=== PATIENT | male | born 1940 | race Caucasian/White ===

== ENCOUNTER → 2016-04-23 | Outpatient (CLI) | payer OTHER ==
--- NOTE | 2016-04-26 12:28 | DI ---
History: Left shoulder pain. Procedure: Three-view study. Prior examination: None. Findings: Narrow gap between the acromion and the humeral head with moderate degenerative changes at the acromioclavicular junction and mild degenerative changes of the humeral head itself. Glenohumeral junction appears fairly well preserved Prior 3 level cervical spine surgery C5-6 and 7. No evidence of dislocation. Impression: Overall, bone mineral density is rather low. Narrow gap between the acromion and the humeral head, suggesting impingement condition. Mild degenerative changes observed at the glenohumeral junction and the acromioclavicular junction. Prior neck surgery
== END ==
LOC: RAD 16:24
DX: M25.512 Pain in left shoulder (principal); M54.2 Cervicalgia; M19.012 Primary osteoarthritis, left shoulder; Z98.1 Arthrodesis status
CPT/HCPCS: 73030; 99213

== ENCOUNTER → 2016-05-04 | Outpatient (CLI) | payer OTHER ==
--- NOTE | 2016-05-04 16:46 | DI ---
CERVICAL SPINE SERIES, 05/04/2016 9:44 AM: Clinical History: Neck pain. Previous Exam: None at this facility. Upright AP and lateral and upright lateral flexion and extension views are submitted. The patient is status post anterior fusions between C5-6 and C6-7, and the fusions are solid. There is mild to moder ate disc space narrowing from C2-3 through C4-5. There is anterior subluxation of C3 on C4 by 1-2 mm with flexion and this is reduced with extension. No instability is noted at C2-3 or C4-5. C1 articula gomez normally with C2 and the occiput. Prevertebral soft tissue planes are normal. Both lung apices ar e normal. Readin. Status post anterior fusions at C5-6 and C6-7, and these fusions are solid. 2. Mild to moderate disc space narrowing from C2-3 to C4-5 with motion demonstrated at the C3-4 leve l with flexion and extension maneuvers. No instability is noted at C2-3 or C4-5.
== END ==
LOC: RAD 11:14
PROVIDERS: ATTEND Physician Assistant
DX: M47.22 Other spondylosis with radiculopathy, cervical region (principal); M48.02 Spinal stenosis, cervical region; Z98.1 Arthrodesis status
CPT/HCPCS: 72050; 72141

== ENCOUNTER → 2016-05-05 | Outpatient (CLI) | payer OTHER ==
--- NOTE | 2016-05-05 23:04 | DI ---
MRI CERVICAL SPINE SCAN, 05/05/2016 11:54 AM: Clinical History: Cervical spondylosis with radiculopathy. Previous Exam: None. Sequences: Sagittal T1and T2 weighted. Axial T2 PLUS and FE 3D DUAL. Coronal T1 scans through the upp er cervical spine. The patient is status post anterior fusions at C5-6 and C6-7 and these fusions are solid. The remaini ng vertebral bodies are of normal height. Disc space narrowing is present at C2-3 through C4-5 and at C7 T1-T4 5. The cerebellar tonsils are normal. The cervical cord is normal although there is narrowi ng in the AP diameter at C4-5 secondary to a herniated disc that will be described below. The C2-3 disc spaces normal. C3-4 has a circumferentially bulging but not herniated disc and this is producing spinal canal stenosis. There is mild bilateral neural foraminal stenosis. C4-5 has severe s boy canal stenosis particularly on the left side secondary to a left anterolateral disc herniation. There is mild bilateral neural foraminal stenosis. C5-6 has a bony spur in the anterior aspect of th e right side of the canal that is displacing the right side of the cord posteriorly. There is no neur al foraminal stenosis. C6-7 has an AP diameter at the lower limits of normal with a bony spur along t he right side of the canal. There is no significant neural foraminal stenosis. The C7-T1 disc space i s normal. T1-2 and T2-3 disc space is have mild central bulging but not herniated discs without canal or neural foraminal stenosis. The T3-4 and T4-5 disc spaces are normal. Readin. There is a large left anterolateral disc herniation at C4-5 and this is causing severe spinal can al stenosis particularly on the left side with impingement on the cord. There is no significant neura l foraminal stenosis. 2. The patient is status post anterior fusions at C5-6 and C6-7 and both level show bone spurs on th e right side. The right-sided bony spur is displacing the right side of the cord posteriorly in the c anal diameter is at the very lowest limits of normal. The C6-7 level shows an AP diameter at the lowe r limits of normal. Both levels show no significant neural foraminal stenosis. 3. There is a bulging but not herniated disc producing spinal canal stenosis without significant carlos ral foraminal stenosis at C3-4. 4. There are bulging but not herniated discs without canal or neural foraminal stenosis at T1-2 and T2-3 with normal disc spaces at C2-3 and T3-4 and T4-5.
== END ==
LOC: MRI 11:50
PROVIDERS: ATTEND Physician Assistant
DX: M47.812 Spondylosis without myelopathy or radiculopathy, cervical region (principal); M50.121 Cervical disc disorder at C4-C5 level with radiculopathy; M47.814 Spondylosis without myelopathy or radiculopathy, thoracic region
CPT/HCPCS: 72141

== ENCOUNTER → 2016-05-07 | Outpatient (CLI) | payer OTHER ==
--- NOTE | 2016-05-07 17:38 | DI ---
MRI LEFT SHOULDER SCAN, 05/07/2016 11:01 AM: Clinical History: Left shoulder pain. Previous Exam: None at this facility. Technique: Axial, coronal, and sagittal fat saturated PD; axial gradient FE; coronal fat saturatedT2 weighted; sagittal T2 weighted. There is no soft tissue edema or abnormal bone signal pattern. No joint effusion is present, but ther e is a large amount of fluid in the subacromion bursa. There is moderate arthrosis of the AC joint wi th a small joint effusion. There is a type I acromion. There is a full-thickness tear in the conjoine d tendon that measures 6 x 12 mm in AP and transverse dimensions. There is tendinosis of the supraspi natus tendon with severe tendinosis involving the tendon of the long head of the biceps muscle in the rotator interval. The subscapularis, infraspinatus, and teres minor tendons are normal. There is a c ordlike middle glenohumeral ligament that has a high attachment to the superior labrum and there is a bsence of the anterior labrum above the equator constituting a Butterfield complex. The labrum itself is n ormal. Readin. There is a full-thickness tear in the conjoined tendon measuring 6 x 12 mm in AP and transverse d imensions. There is severe tendinosis in the tendon of the long head of the biceps muscle in the rota tor interval and there is also tendinosis in the supraspinatus tendon. The tendons of the infraspinat us, subscapularis, and teres minor tendons are normal. There is moderate arthrosis of the AC joint. 2. There is a Butterfield complex with absence of the anterior labrum above the equator. The remainder of the labrum is normal. This patient has a type I acromion.
== END ==
LOC: MRI 10:43
PROVIDERS: ATTEND Physician Assistant
DX: M25.512 Pain in left shoulder (principal); M54.2 Cervicalgia; S46.812A Strain of other muscles, fascia and tendons at shoulder and upper arm level, left arm, initial encounter; M65.812 Other synovitis and tenosynovitis, left shoulder; M19.012 Primary osteoarthritis, left shoulder
CPT/HCPCS: 72050; 73221

== ENCOUNTER → 2016-05-20 | Outpatient (CLI) | payer OTHER ==
--- NOTE | 2016-05-20 14:42 | EKG ---
[address] [address] Measurements Intervals [place] Rate: 60 P: 75 IA: 177 QRS: 95 QRSD: 101 T: 89 QT: 393 QTc: 395 Interpretive Statements SINUS RHYTHM BORDERLINE RIGHT AXIS DEVIATION [QRS AXIS > 90] NONSPECIFIC T-WAVE ABNORMALITY No previous ECG available for comparison Electronically Signed On 05-20-16 15:20:04 MST by Dion Montiel [id number]
[2016-05-20 15:24] LABS: BASOPHILS # (AUTO) 0.07 10*3/UL; BASOPHILS % (AUTO) 1.2 % (0-1); EOSINOPHILS % (AUTO) 3.7 % (0-8); HEMATOCRIT 44.5 % (42.0-52.0); HEMOGLOBIN 14.2 g/dL (14.0-18.0); IMM GRAN % (AUTO) 0.3 % (0-5); IMM GRAN# (AUTO) 0.02 10*3/UL; LYMPHOCYTES # (AUTO) 1.29 10*3/uL; LYMPHOCYTES % (AUTO) 21.8 % (10-50); MEAN CORPUSCULAR HEMOGLOBIN 30.4 PG (27-31); MEAN CORPUSCULAR HGB CONC 31.9 g/dL (33-37); MEAN PLATELET VOLUME 8.9 FL (7.4-12.2); MONOCYTES # (AUTO) 0.63 10*3/UL (0.3-0.8); MONOCYTES % (AUTO) 10.6 % (5-15); NEUTROPHILS % (AUTO) 62.4 % (50-80); RDW COEFFICIENT OF VARIATION 12.6 % (11.5-14.5); RED BLOOD COUNT 4.67 10^6/uL (4.70-6.10); WHITE BLOOD COUNT 5.93 10^3/uL (4.8-10.8)
[2016-05-20 15:28] LABS: PLATELET MORPHOLOGY COMMENT NORMAL MORPHOLOGY (NORM)
[2016-05-20 15:47] LABS: BILIRUBIN,URINE NEGATIVE (NEG); CLARITY,URINE CLEAR (CLEAR); GLUCOSE, URINE (UA) NEGATIVE (NEG); LEUKOCYTE ESTERASE ,URINE NEGATIVE (NEG); NITRATE,URINE NEGATIVE (NEG); OCCULT BLOOD,URINE Trace-intact (NEG); PROTEIN,URINE NEGATIVE (NEG); UROBILINOGEN,URINE 0.2 mg/dL (0.2)
[2016-05-20 15:50] LABS: CALCIUM 9.6 mg/dL (8.7-10.7); CREATININE 1.2 mg/dL (0.70-1.50); POTASSIUM 4.6 meq/L (3.8-5.2)
[2016-05-20 15:52] LABS: RBC,URINE RARE /hpf; URINE SAMPLE TYPE CLEAN CATCH URINE; WBC,URINE 0
--- NOTE | 2016-05-20 16:14 | DI ---
PA /LATERAL CHEST X-RAY, 05/20/2016 2:22 PM : Clinical History: Essential hypertension. Preoperative clearance. Previous Exam: None at this facility. There is no acute soft tissue or bony abnormality. Heart size is normal. There are no acute infiltrat es or effusions. There is moderate flattening of diaphragms with increased retrosternal airspace sugg esting centrilobular emphysema. Mediastinal structures are normal. There are no pulmonary nodules. Reading: Normal chest x-ray. This patient may have underlying centrilobular emphysema.
== END ==
LOC: MOB LAB 14:23
PROVIDERS: ATTEND Nurse Practitioner
DX: M50.121 Cervical disc disorder at C4-C5 level with radiculopathy (principal); I25.10 Atherosclerotic heart disease of native coronary artery without angina pectoris; I10 Essential (primary) hypertension; J43.2 Centrilobular emphysema; Z87.891 Personal history of nicotine dependence
CPT/HCPCS: 36415; 71020; 80048; 81001; 85025; 85730; 93005; 93010

== ENCOUNTER → 2016-05-25 | Outpatient (CLI) | payer OTHER ==
[2016-05-25 14:56] LABS: CALCIUM 9.2 mg/dL (8.7-10.7); CREATININE 1.3 mg/dL (0.70-1.50); POTASSIUM 4.4 meq/L (3.8-5.2)
== END ==
LOC: MOB LAB 13:42
PROVIDERS: ATTEND Nurse Practitioner
DX: I10 Essential (primary) hypertension (principal)
CPT/HCPCS: 36415; 80048

== ENCOUNTER 2016-05-28 16:23 | Inpatient (IN) | payer OTHER ==
[2016-05-28] MEDS ORDERED: KETOROLAC 15 MG/1 ML VIAL IVP ONE (16:39)
[2016-05-28] MEDS ORDERED: NORMAL SALINE 10 ML SYRINGE FLUSH IVP PRN ×3 (16:39→21:39)
[2016-05-28] MEDS ORDERED: Sodium Chloride 0.9% 1,000 ML PRIMARY IV ONE (16:39)
[2016-05-28] MEDS ORDERED: ACETAMINOPHEN 325 MG TABLET PO ONE (16:39)
--- NOTE | 2016-05-28 17:08 | EKG ---
[address] [address] Measurements Intervals [place] Rate: 74 P: 30 AK: 154 QRS: 85 QRSD: 92 T: 7 QT: 344 QTc: 371 Interpretive Statements SINUS RHYTHM NONSPECIFIC T-WAVE ABNORMALITY Compared to ECG 05/20/2016 14:45:25 No significant changes Electronically Signed On 05-28-16 17:58:59 MST by Dion Montiel [id number]
[2016-05-28 17:23] LABS: BASOPHILS # (AUTO) 0.04 10*3/UL; BASOPHILS % (AUTO) 0.8 % (0-1); EOSINOPHILS % (AUTO) 0.8 % (0-8); HEMATOCRIT 42.3 % (42.0-52.0); HEMOGLOBIN 13.4 g/dL (14.0-18.0); IMM GRAN % (AUTO) 0.4 % (0-5); IMM GRAN# (AUTO) 0.02 10*3/UL; LYMPHOCYTES # (AUTO) 0.49 10*3/uL; LYMPHOCYTES % (AUTO) 9.5 % (10-50); MEAN CORPUSCULAR HEMOGLOBIN 30.5 PG (27-31); MEAN CORPUSCULAR HGB CONC 31.7 g/dL (33-37); MEAN PLATELET VOLUME 9.1 FL (7.4-12.2); MONOCYTES # (AUTO) 0.88 10*3/UL (0.3-0.8); MONOCYTES % (AUTO) 17.1 % (5-15); NEUTROPHILS # (AUTO) 3.69 10*3/UL; NEUTROPHILS % (AUTO) 71.4 % (50-80); RDW COEFFICIENT OF VARIATION 13.1 % (11.5-14.5); RED BLOOD COUNT 4.39 10^6/uL (4.70-6.10); WHITE BLOOD COUNT 5.16 10^3/uL (4.8-10.8)
[2016-05-28 17:26] LABS: PLATELET MORPHOLOGY COMMENT NORMAL MORPHOLOGY (NORM)
--- NOTE | 2016-05-28 17:30 | PDOC ---
General Adult HPI - General Chief Complaint: General Medical Stated Complaint: FEVER Date Seen by Provider: 05/28/16 Time Seen by Provider: 16:25 Source: POSITIVE: Patient Exam Limitations: POSITIVE: No limitations Nurse's Notes Reviewed & Considered: Yes - History of Present Illness Initial Comment: The patient is a 75-year-old male who presents to the emergency department with complaints of fever. He states that for the past 3 or 4 weeks he has been having problems with left-sided neck pain that radiates to his left shoulder. He underwent MRI of his neck and shoulder and was found to have a herniated disc and problems with his neck. He had been referred to Dr. Lin in [place] and was scheduled for surgery on his neck yesterday. When he presented to the hospital yesterday he was running a fever of 100.2 and they had decided not to do his surgery. He continues to have fever and increased general malaise today. Today he also has some generalized headache. He also complains of some vague abdominal pain which started sometime last night. He denies any congestion. He does have mild sore throat. He has not had any cough or increased shortness of breath and denies chest pain. He has not had any nausea or vomiting or change in bowel movements. He denies any rash or any other associated symptoms. He has had prior C-spine surgery. He denies any intra- abdominal surgeries. Have you received a tetanus shot in the past 10 years?: Unknown - Patient Home Medications Home Medications: Home Medications Aspirin [Aspir 81] 1 tab PO DAILY 04/03/10 Hydrochlorothiazide [HYDROCHLOROTHIAZIDE] 1 tab ORAL QD #30 tab 01/15/16 Metoprolol Succinate [Toprol Xl] 1 tab ORAL QD #30 tab 01/15/16 Simvastatin 1 tab PO QHS #30 tab 01/15/16 - Patient Allergies Allergies/Adverse Reactions: Allergies Allergy/AdvReac Type Severity Reaction Status Date / Time pneumococcal vaccine Allergy HIVES Verified 05/28/16 16:32 Past Medical History - heen HEENT History: Cataracts, Dentures/Partials, Other (please comment) Additional HEENT History: WEARS GLASSES Cardiovascular History: Hypertension, CAD, Hyperlipidemia Additional Cardiovasular History: INFERIOR ISCHEMIA ON A STRESS TEST Respiratory History: Denies History Gastrointestinal History: Diverticulitis, Other (please comment) Additional Gastrointestinal History: CHRONIC LLQ PAIN/COLONIC POLYPS Genitourinary History: Denies History Endocrine History: Denies History Musculoskeletal History: Carpal Tunnel, Other (please comment) Prosthesis or Implant: Yes (NECK ) Additional Musculoskeletal History: CARPAL TUNNEL SYNDROME/DEGENERATION OF CERVICAL INTERVERTEBRAL DISC, LEFT ROTATOR CUFF TEAR Neurological History: Denies History Blood Disorders: Denies History Psychiatric History: Denies History History of Sexually Transmitted Diseases: No Cancer History: Denies History In Past Year Been Physically Harmed or Verbally Threatened: No (PER PATIENT) History of MDRO: No History of Other Communicable Diseases: No Tobacco Use: Never Smoker Alcohol Use: Rarely Substance Use Type: None Previous Surgical History: Yes Type / Date of Surgery: RIGHT CARPAL TUNNEL RELEASE 08-26/CERVICAL FUSION/ COLONOSCOPY 2005 & 2009/GANGLION CYST Anesthesia Reactions: No Malignant Hyperthermia: No Family History of Malignant Hyperthermia: No Significant Family History: Renal disease Past Medical History Reviewed: Reviewed - No Changes ROS - Limitations ROS Limitations: No Limitations Constitution: REPORTS: Chills, Fever Cardiovascular: DENIES: Chest Pain, Heart Racing, Heart Palpitations, Edema Respiratory: DENIES: Cough Non Productive, Cough Productive, Hurts To Breathe, Shortness Of Breath Neurological: REPORTS: Headache, Other (He reports last night he was having very vivid dreams that felt like hallucinations). DENIES: Numbness, Weakness Gastrointestinal: REPORTS: Abdominal Pain. DENIES: Nausea, Vomitting, Diarrhea , Black Stools, Bloody Stools Endocrine: REPORTS: Fatigue Musculoskeletal: DENIES: Muscle Aches Genitourinary: REPORTS: Denies Symptoms Eyes: REPORTS: Denies Symptoms ENT: REPORTS: Denies Symptoms, Sore Throat (Mild). DENIES: Congestion Skin: DENIES: Rash General Adult Exam - General Appearance General Appearance: POSITIVE: Alert, Cooperative, No Acute Distress - HEENT HEENT: POSITIVE: Head Inspection Nml, Eyes Inspection Nml, Ears Inspection Nml, Pharynx Inspect. Nml, PERRL, EOMI, Dry Mucous Membranes - Neck Neck: POSITIVE: Normal Inspection. NEGATIVE: Lymphadenopathy - Respiratory Respiratory: POSITIVE: No Respiratory Distress, Breath Sounds Normal - Cardiovascular Cardiovascular: POSITIVE: Regular Rate & Rhythm, No Murmur Peripheral Pulses: Dorsalis-pedis (R): 2+, Dorsalis-pedis (L): 2+ - Abdomen Abdomen: Soft: (All Quadrants), Denies Tenderness: (All Quadrants), No Distention: (All Quadrants) - Back Back: POSITIVE: Normal Inspection - Skin Skin: POSITIVE: Normal Color, No Rash - Extremities Extremity: Normal ROM: (All Extremities), Normal Inspection: (All Extremities) - Neurological / Psychological Neurological: POSITIVE: Oriented X3, Motor Normal, Sensation Normal General Adult Progress - Results Reviewed by me Xrays/CTs/US Reviewed by me: Yes Discussed with Radiologist: Yes Radiology Findings: T scan of the head reveals no acute intracranial findings per radiologist. He does have evidence of some paranasal sinusitis. CT scan of the chest reveals opacities in both lung bases no other acute findings per radiologist. CT scan of the abdomen and pelvis reveals diverticulosis and constipation without any other acute abnormalities per radiologist. Lab Results Reviewed: Yes Lab Results:: Laboratory Results 05/28/16 05/28/16 Range/Units 16:39 17:12 WBC 5.16 (4.8-10.8) 10^3/uL RBC 4.39 L (4.70-6.10) 10^6/uL Hgb 13.4 L (14.0-18.0) g/dL Hct 42.3 (42.0-52.0) % MCV 96.4 H (80-90) FL MCH 30.5 (27-31) PG MCHC 31.7 L (33-37) g/dL RDW Std Deviation 45.5 (39-50) fL RDW Coeff of Benitez 13.1 (11.5-14.5) % Plt Count 213 (140-350) 10*3/uL MPV 9.1 (7.4-12.2) FL Immature Gran % (Auto) 0.4 (0-5) % Neut % (Auto) 71.4 (50-80) % Lymph % (Auto) 9.5 L (10-50) % [place] % (Auto) 17.1 H (5-15) % Eos % (Auto) 0.8 (0-8) % Baso % (Auto) 0.8 (0-1) % Immature Gran # (Auto) 0.02 10*3/UL Neut # (Auto) 3.69 10*3/UL Lymph # (Auto) 0.49 10*3/uL [place] # (Auto) 0.88 H (0.3-0.8) 10*3/UL Eos # (Auto) 0.04 10*3/UL Baso # (Auto) 0.04 10*3/UL WBC Morphology Comment See comments (NORM) Plt Morphology Comment Normal morphology (NORM) RBC Morph Comment Normal morphology (NORM) D-Dimer 0.50 (0.00-0.59) mg/L Sodium 139 (135-145) meq/L Potassium 4.2 (3.8-5.2) meq/L Chloride 100 (98-112) meq/L Carbon Dioxide 26 (23-33) meq/L Anion Gap 13 (5-20) BUN 26 H (7-22) mg/dL Creatinine 1.3 (0.70-1.50) mg/dL Estimated GFR (>60 ml/min/1.73m(2)) BUN/Creatinine Ratio 20.00 (6-20) Glucose 103 (78-110) mg/dL Calculated Osmolality 292.0 (267-292) mOsm/kg Lactic Acid 0.9 (0.70-2.10) MMOL/L Calcium 8.5 L (8.7-10.7) mg/dL Total Bilirubin 0.3 (0.3-1.2) mg/dL AST 29 (21-57) IU/L ALT 35 (21-72) IU/L Alkaline Phosphatase 99 (38-126) IU/L Total Creatine Kinase 78 (55-170) IU/L Troponin I 0.012 (< 0.040) ng/mL C-Reactive Protein 5.6 H (0.0-0.9) mg/dL Total Protein 7.4 (6.1-8.0) g/dL Albumin 4.3 (3.5-4.8) g/dL Globulin 3.1 (2.50-4.10) g/dL Albumin/Globulin Ratio 1.30 (1.3-2.0) mg/g Ur Collection Type Clean catch urine Urine Color Yellow Urine Clarity Clear (CLEAR) Urine pH 5.0 (5.0-8.5) Ur Specific [place] 1.025 (1.005-1.030) Urine Protein 30 (NEG) mg/dl Urine Glucose (UA) Negative (NEG) mg/dL Urine Ketones Trace (NEG) Urine Occult Blood Negative (NEG) Urine Nitrate Negative (NEG) Urine Bilirubin Negative (NEG) Urine Urobilinogen 0.2 (0.2) EU/dL Ur Leukocyte Esterase Negative (NEG) Urine RBC 1-3 (NONE) /hpf Urine WBC 1-3 (NONE) Ur Squamous Epith Cells Rare (NONE) Ur Renal Epithelial Cell None (NONE) Urine Crystals None Urine Bacteria Rare (NONE) Urine Casts None (NONE) Urine Mucus None (NONE) Urine Trichomonas None (NONE) Urine Yeast None (NONE) Ur Culture Indicated? Culture not set EKG Interpreted/Reviewed By Me:: Yes EKG Interpretation:: POSITIVE: Normal Sinus Rhythm, Normal Rate, Normal Intervals, Normal QRS, Normal ST/T - Patient's Progress MDM / ED Course: Blood cultures and lactate were obtained with initial IV start. He was febrile on arrival with a temperature of 101F. He received Tylenol 650 mg by mouth and Toradol 30 mg IV as well as a fluid bolus. His temperature came down. He continued to have general malaise. His initial flu test and blood work were unremarkable except for an elevated CRP. Urinalysis was normal. His headache improved with administration of fluids however he continued to have some dizziness with walking. CT scan of his head was done which revealed no evidence of acute intracranial pathology, he did however have evidence of paranasal sinusitis. He was hypoxic on arrival and chest x-ray was essentially unremarkable. CT scan of the chest revealed some opacities in the lung bases bilaterally with no other acute findings. CT scan of the abdomen and pelvis revealed constipation and diverticulosis, enlarged prostate with no acute intra- abdominal findings. The patient presents to the emergency room with fever, hypoxia. Etiology is somewhat unclear however he does have opacities noted in the lung bases on CT and most likely this represents a pneumonia. He also has some evidence of sinusitis. After discussion with Dr. Bae the patient will be started on Rocephin and Zithromax and admitted to the hospital for further treatment. The patient is in agreement with this plan. - Consult Counseled: POSITIVE: Patient, RE: Lab Results, RE: Radiology Results, RE: DX, RE : Need for F/U Patient Care Time - Estimated PCT Patient Care Time (In Minutes): 45 Vital Signs - Recent Vital Signs Vital Signs: Vital Signs (Last 8 hours) Temp Pulse Pulse Resp BP Pulse Ox 05/28/16 17:50 98.8 F 05/28/16 17:07 74 05/28/16 17:00 101.4 F H 05/28/16 16:23 101.4 F H 86 19 171/81 89 - VS Reviewed Vital Signs Reviewed: Yes Discharge Clinical Impression: Hypoxia Fever Qualifiers: Fever type: due to other condition Qualifier Code: (R50.81) Fever presenting with conditions classified elsewhere Sinusitis Qualifiers: Sinusitis location: maxillary Pneumonia Qualifiers: Pneumonia type: due to Pneumococcus Laterality: bilateral Discharge Disposition: Admit to Inpatient Condition: Fair Date Decision to Admit to Inpatient: 05/28/16 Time Decision to Admit to Inpatient: 20:30
[2016-05-28 17:32] LABS: BILIRUBIN,TOTAL 0.3 mg/dL (0.3-1.2); C-REACTIVE PROTEIN 5.6 mg/dL (0.0-0.9); CALCIUM 8.5 mg/dL (8.7-10.7); CREATININE 1.3 mg/dL (0.70-1.50); LACTATE 0.9 MMOL/L (0.70-2.10); POTASSIUM 4.2 meq/L (3.8-5.2); TOTAL PROTEIN 7.4 g/dL (6.1-8.0)
[2016-05-28 18:42] LABS: BILIRUBIN,URINE NEGATIVE (NEG); CLARITY,URINE CLEAR (CLEAR); GLUCOSE, URINE (UA) NEGATIVE (NEG); LEUKOCYTE ESTERASE ,URINE NEGATIVE (NEG); NITRATE,URINE NEGATIVE (NEG); OCCULT BLOOD,URINE NEGATIVE (NEG); PROTEIN,URINE 30 mg/dl (NEG); UROBILINOGEN,URINE 0.2 EU/dL (0.2)
[2016-05-28 18:47] LABS: URINE SAMPLE TYPE CLEAN CATCH URINE
--- NOTE | 2016-05-28 19:36 | DI ---
HISTORY: Headache, dizziness. TECHNIQUE: Contiguous axial images of the brain were obtained and submitted for interpretation. FINDINGS: There is no acute infarct, intracranial hemorrhage, or mass effect. There is no hydroceph alus, or significant midline shift. The basal cisterns are not effaced. There is senescent change w ith atrophy. There is modest mucosal thickening involving the paranasal sinuses. There is hyperosto sis frontalis interna. IMPRESSION: 1. No intracranial hemorrhage. MRI is recommended if clinical symptoms persist.
[2016-05-28 19:53] LABS: BACTERIA,URINE RARE; SQUAMOUS EPITHELIAL CELL,UR RARE
[2016-05-28] MEDS ORDERED: cefTRIAXone Inj 2 GM in Sodium Chloride 0.9% 100 ML IV ONE (20:34)
--- NOTE | 2016-05-28 20:44 | PDOC ---
History and Physical - History of Present Illness History of Present Illness: Very nice 75-year-old gentleman went to the ER because of fever. Apparently that the past 3-4 weeks he's been having some problem with his left side of his neck which radiates to his left shoulder he underwent an MRI of his neck and shoulder and was to have was found to have an herniated disc and he was referred to neurosurgery in [place] and had this surgery scheduled for today but yesterday had a fever as [place] [facility] and they decided not to do the surgery to feel some weakness and overall not well planus some abdominal pain and CT scan of the abdomen and pelvis did not reveal any acute findings but CT of the chest revealed some opacities at the bases also found to be hypoxic in his 80s and was started on oxygen and was admitted for pneumonia and given Rocephin and Zithromax . Influenza tests were also negative Feels a little dizzy today her little better than yesterday no fever Past Medical History Medical History: Hypertension, high cholesterol Tobacco Use: Never Smoker Substance Use Type: None Medication / Allergies Home Medications: Home Medications Medication Instructions Recorded Confirmed Type Aspirin [Aspir 81] 1 tab PO DAILY 04/03/10 05/28/16 History Hydrochlorothiazide 1 tab ORAL QD #30 tab 01/15/16 05/28/16 Clinic [HYDROCHLOROTHIAZIDE] Metoprolol Succinate [Toprol Xl] 1 tab ORAL QD #30 tab 01/15/16 05/28/16 Clinic Simvastatin 1 tab PO QHS #30 tab 01/15/16 05/28/16 Clinic Allergies/Adverse Reactions: Allergies Allergy/AdvReac Type Severity Reaction Status Date / Time pneumococcal vaccine Allergy HIVES Verified 05/29/16 07:21 Review of Systems - Review of Systems All Systems: Reviewed & No Additional Complaints Except as Stated - Constitutional Constitutional: REPORTS: Fever/Chills (Chills) - Respiratory Respiratory: REPORTS: Cough - Cardiovascular Cardiovascular: DENIES: Negative System Review, Chest Pain, Edema, Syncope, Palpitations, Orthopnea, Paroxysmal Nocturnal Dyspnea, Other, See HPI - Gastrointestinal Gastrointestinal / Abdominal: DENIES: Negative System Review, Nausea, Vomiting, Diarrhea, Constipation, Abdominal Pain, Bloody Stool, Poor Appetite, Heartburn, Regurgitation, Bloating, Lactose Intolerance, Melena, Bright Red Blood Per Rectum, Other, See HPI Exam - Vitals Vital Signs: Vital Signs Temperature 98.8 F Temperature Source Temporal Artery Scan Pulse Rate [Pulse Oximeter] 86 Pulse Rate 74 Respiratory Rate 19 Blood Pressure [Left Arm] 171/81 Pulse Ox 89 Oxygen Delivery Method Room Air Height 5 ft 6 in Weight 90.718 kg - General General Appearance: POSITIVE: No Acute Distress - Neck Neck Exam: POSITIVE: Normal Inspection - Respiratory Respiratory Exam: POSITIVE: Clear to Auscultation - Bilaterally, Breathing Non Labored, Normal To Percussion, Normal to Percussion and Palpation, Rhonci Additional Respiratory Exam Details: Right lower lobe - Cardiovascular Cardiovascular Exam: POSITIVE: RRR, No Murmur, No Clicks, No Gallops - GI/Abdominal GI/Abdominal Exam: POSITIVE: Non Tender, Non Distended, Soft - Extremities Extremities Exam: POSITIVE: No Clubbing Present, No Edema Present - Neurological Neurological Exam: POSITIVE: Alert, Oriented x 3, CN II-XII Intact - Psychiatric Psychiatric Exam: POSITIVE: Normal Affect Results - Labs CBC and BMP: 05/29/16 05:06 05/29/16 05:06 Labs - Last 24 Hours: Laboratory Results 05/28/16 05/28/16 Range/Units 16:39 17:12 WBC 5.16 (4.8-10.8) 10^3/uL RBC 4.39 L (4.70-6.10) 10^6/uL Hgb 13.4 L (14.0-18.0) g/dL Hct 42.3 (42.0-52.0) % MCV 96.4 H (80-90) FL MCH 30.5 (27-31) PG MCHC 31.7 L (33-37) g/dL RDW Std Deviation 45.5 (39-50) fL RDW Coeff of Benitez 13.1 (11.5-14.5) % Plt Count 213 (140-350) 10*3/uL MPV 9.1 (7.4-12.2) FL Immature Gran % (Auto) 0.4 (0-5) % Neut % (Auto) 71.4 (50-80) % Lymph % (Auto) 9.5 L (10-50) % [place] % (Auto) 17.1 H (5-15) % Eos % (Auto) 0.8 (0-8) % Baso % (Auto) 0.8 (0-1) % Immature Gran # (Auto) 0.02 10*3/UL Neut # (Auto) 3.69 10*3/UL Lymph # (Auto) 0.49 10*3/uL [place] # (Auto) 0.88 H (0.3-0.8) 10*3/UL Eos # (Auto) 0.04 10*3/UL Baso # (Auto) 0.04 10*3/UL WBC Morphology Comment See comments (NORM) Plt Morphology Comment Normal morphology (NORM) RBC Morph Comment Normal morphology (NORM) D-Dimer 0.50 (0.00-0.59) mg/L Sodium 139 (135-145) meq/L Potassium 4.2 (3.8-5.2) meq/L Chloride 100 (98-112) meq/L Carbon Dioxide 26 (23-33) meq/L Anion Gap 13 (5-20) BUN 26 H (7-22) mg/dL Creatinine 1.3 (0.70-1.50) mg/dL Estimated GFR (>60 ml/min/1.73m(2)) BUN/Creatinine Ratio 20.00 (6-20) Glucose 103 (78-110) mg/dL Calculated Osmolality 292.0 (267-292) mOsm/kg Lactic Acid 0.9 (0.70-2.10) MMOL/L Calcium 8.5 L (8.7-10.7) mg/dL Total Bilirubin 0.3 (0.3-1.2) mg/dL AST 29 (21-57) IU/L ALT 35 (21-72) IU/L Alkaline Phosphatase 99 (38-126) IU/L Total Creatine Kinase 78 (55-170) IU/L Troponin I 0.012 (< 0.040) ng/mL C-Reactive Protein 5.6 H (0.0-0.9) mg/dL Total Protein 7.4 (6.1-8.0) g/dL Albumin 4.3 (3.5-4.8) g/dL Globulin 3.1 (2.50-4.10) g/dL Albumin/Globulin Ratio 1.30 (1.3-2.0) mg/g Ur Collection Type Clean catch urine Urine Color Yellow Urine Clarity Clear (CLEAR) Urine pH 5.0 (5.0-8.5) Ur Specific [place] 1.025 (1.005-1.030) Urine Protein 30 (NEG) mg/dl Urine Glucose (UA) Negative (NEG) mg/dL Urine Ketones Trace (NEG) Urine Occult Blood Negative (NEG) Urine Nitrate Negative (NEG) Urine Bilirubin Negative (NEG) Urine Urobilinogen 0.2 (0.2) EU/dL Ur Leukocyte Esterase Negative (NEG) Urine RBC 1-3 (NONE) /hpf Urine WBC 1-3 (NONE) Ur Squamous Epith Cells Rare (NONE) Ur Renal Epithelial Cell None (NONE) Urine Crystals None Urine Bacteria Rare (NONE) Urine Casts None (NONE) Urine Mucus None (NONE) Urine Trichomonas None (NONE) Urine Yeast None (NONE) Ur Culture Indicated? Culture not set Assessment and Plan - Patient Problems (1) Pneumonia Current Visit: Yes Status: Acute Comment: IV Zithromax and Rocephin oxygen blood cultures Qualifiers: Pneumonia type: due to Pneumococcus Laterality: bilateral (2) Hypoxia Current Visit: Yes Status: Acute (3) Fever Current Visit: Yes Status: Acute Qualifiers: Fever type: due to other condition Qualified Description: Fever in other diseases Qualifier Code(s): (R50.81) Fever presenting with conditions classified elsewhere (4) Sinusitis Current Visit: Yes Status: Acute Comment: Ceftriaxone 2 g IV daily Qualifiers: Sinusitis location: maxillary
[2016-05-28] MEDS ORDERED: ONDANSETRON 4 MG/2 ML VIAL IVP PRN (21:39)
[2016-05-28] MEDS: cefTRIAXone Inj 2 GM in Sodium Chloride 0.9% 100 ML IV SCH (21:43)
[2016-05-28] MEDS: Simvastatin Tab 40 MG TAB PO SCH (22:55)
[2016-05-28] MEDS: HEPARIN 5000 UNIT/1 ML SUBCUT SCH (22:56)
[2016-05-29 05:44] LABS: BASOPHILS # (AUTO) 0.05 10*3/UL; EOSINOPHILS % (AUTO) 1.4 % (0-8); HEMOGLOBIN 12.8 g/dL (14.0-18.0); IMM GRAN % (AUTO) 0.4 % (0-5); IMM GRAN# (AUTO) 0.02 10*3/UL; LYMPHOCYTES # (AUTO) 0.65 10*3/uL; LYMPHOCYTES % (AUTO) 12.6 % (10-50); MONOCYTES # (AUTO) 0.74 10*3/UL (0.3-0.8); MONOCYTES % (AUTO) 14.4 % (5-15); NEUTROPHILS # (AUTO) 3.62 10*3/UL; NEUTROPHILS % (AUTO) 70.2 % (50-80); PLATELET MORPHOLOGY COMMENT NORMAL MORPHOLOGY (NORM); RDW COEFFICIENT OF VARIATION 13.1 % (11.5-14.5); RED BLOOD COUNT 4.13 10^6/uL (4.70-6.10); WHITE BLOOD COUNT 5.15 10^3/uL (4.8-10.8)
[2016-05-29 05:51] LABS: BUN/CREATININE RATIO 21.66 (6-20); CALCIUM 8.4 mg/dL (8.7-10.7); CREATININE 1.2 mg/dL (0.70-1.50); PHOSPHORUS 3.4 mg/dl (2.4-4.3); POTASSIUM 4.2 meq/L (3.8-5.2)
[2016-05-29] MEDS: HEPARIN 5000 UNIT/1 ML SUBCUT SCH ×3 (07:21→21:11)
[2016-05-29] MEDS: ASPIRIN EC 81 MG TABLET PO SCH (08:19)
--- NOTE | 2016-05-29 12:47 | DI ---
HISTORY: Fever, hypoxia. and abdominal pain. TECHNIQUE: Contrast-enhanced images of the chest, abdomen, and pelvis were obtained and submitted fo r interpretation. FINDINGS: There is no mediastinal, axillary, or hilar adenopathy. There is no pleural or pericardia l effusion. There is cardiomegaly. The esophagus is thickened, and there is thickening of the GE junction. Endo scopy could be helpful. The stomach is partially collapsed and thickened. The trachea, main, and segmental bronchi demonstrate no endobronchial lesions. There is no focal pulmonary nodule or pulmonary mass. Bibasilar atelectasis opacities suggest atelec tasis. The liver, spleen, collapsed gallbladder, atrophied pancreas, both kidneys, and both adrenal glands d emonstrate no acute findings. There is bilateral perinephric edema. The collapsed stomach demonstrates a thickened wall. There is moderate to severe constipation with scattered colonic diverticulosis especially involving s igmoid colon. There is no free air or free fluid. There is no obstruction. The small bowel loops a re not dilated. The appendix is not clearly visualized. The aorta and IVC demonstrate no acute findings. There is atherosclerotic calcification of the aorta . There is fecal distention of the rectum. The prostate gland is slightly prominent and contains internal calcifications. The urinary bladder i s partially distended. The visualized osseous structures demonstrate no destructive abnormality. There is diffuse degenerat althea change. Partially imaged lower cervical spine ACDF. Scattered sclerotic foci favored to represe nt bone islands. This can be confirmed with a bone scan. IMPRESSION: 1. Cardiomegaly. 2. Probable bibasilar atelectasis. 3. Bilateral perinephric edema. 4. Pancreatic atrophy. 5. Scattered colonic diverticulosis, especially of the sigmoid colon. 6. Slight prominence of the prostate gland which contains internal calcifications. NOTIFICATION: The above findings were phoned to Panda Carmichael in the ER Department on 05/28/2016 at 10: 00pm EST.
[2016-05-29] MEDS ORDERED: ACETAMINOPHEN 500 MG TABLET PO PRN (14:40)
[2016-05-29] MEDS ORDERED: ACETAMINOPHEN 500 MG TABLET PO ONE (15:05)
[2016-05-29] MEDS: METOPROLOL SUCCINATE 100 MG SR 24H TABLET PO SCH ×2 (15:40→15:44)
[2016-05-29] MEDS: HYDROCHLOROTHIAZIDE 12.5 MG CAPSULE PO SCH (16:16)
[2016-05-29] MEDS: Levofloxacin 750mg (Premix) 750 MG in Dextrose 1 BAG IV SCH (18:50)
[2016-05-29] MEDS ORDERED: DEXTROSE IV ONE (18:51)
[2016-05-29] MEDS: Simvastatin Tab 40 MG TAB PO SCH (21:11)
[2016-05-29] MEDS: cefTRIAXone Inj 2 GM in Sodium Chloride 0.9% 100 ML IV SCH (21:11)
[2016-05-30 05:27] LABS: BASOPHILS # (AUTO) 0.02 10*3/UL; BASOPHILS % (AUTO) 0.3 % (0-1); EOSINOPHILS % (AUTO) 0.7 % (0-8); HEMOGLOBIN 12.5 g/dL (14.0-18.0); IMM GRAN % (AUTO) 0.3 % (0-5); IMM GRAN# (AUTO) 0.02 10*3/UL; LYMPHOCYTES # (AUTO) 0.87 10*3/uL; LYMPHOCYTES % (AUTO) 12.9 % (10-50); MEAN CORPUSCULAR HEMOGLOBIN 30.3 PG (27-31); MEAN CORPUSCULAR HGB CONC 31.3 g/dL (33-37); MEAN PLATELET VOLUME 9.4 FL (7.4-12.2); MONOCYTES # (AUTO) 0.82 10*3/UL (0.3-0.8); MONOCYTES % (AUTO) 12.2 % (5-15); NEUTROPHILS # (AUTO) 4.96 10*3/UL; NEUTROPHILS % (AUTO) 73.6 % (50-80); RED BLOOD COUNT 4.13 10^6/uL (4.70-6.10); WHITE BLOOD COUNT 6.74 10^3/uL (4.8-10.8)
[2016-05-30] MEDS: HEPARIN 5000 UNIT/1 ML SUBCUT SCH ×3 (05:28→21:43)
[2016-05-30 05:33] LABS: BILIRUBIN,TOTAL 0.2 mg/dL (0.3-1.2); CALCIUM 8.5 mg/dL (8.7-10.7); CREATININE 0.9 mg/dL (0.70-1.50); POTASSIUM 4.7 meq/L (3.8-5.2); TOTAL PROTEIN 6.4 g/dL (6.1-8.0)
[2016-05-30 05:56] LABS: PLATELET MORPHOLOGY COMMENT NORMAL MORPHOLOGY (NORM)
[2016-05-30] MEDS: HYDROCHLOROTHIAZIDE 12.5 MG CAPSULE PO SCH (06:51)
[2016-05-30] MEDS: METOPROLOL SUCCINATE 100 MG SR 24H TABLET PO SCH (09:17)
[2016-05-30] MEDS: ASPIRIN EC 81 MG TABLET PO SCH (09:18)
--- NOTE | 2016-05-30 10:02 | PDOC(PROG) ---
Interval History: Patient is improving looks much better today denies chest pain nausea or vomiting appetite is improved Objective : Data - Labs CBC and BMP: 05/30/16 04:53 05/30/16 04:53 Labs - Last 24 Hours: Laboratory Results 05/30/16 Range/Units 04:53 WBC 6.74 (4.8-10.8) 10^3/uL RBC 4.13 L (4.70-6.10) 10^6/uL Hgb 12.5 L (14.0-18.0) g/dL Hct 40.0 L (42.0-52.0) % MCV 96.9 H (80-90) FL MCH 30.3 (27-31) PG MCHC 31.3 L (33-37) g/dL RDW Std Deviation 45.2 (39-50) fL RDW Coeff of Benitez 13.0 (11.5-14.5) % Plt Count 188 (140-350) 10*3/uL MPV 9.4 (7.4-12.2) FL Immature Gran % (Auto) 0.3 (0-5) % Neut % (Auto) 73.6 (50-80) % Lymph % (Auto) 12.9 (10-50) % [place] % (Auto) 12.2 (5-15) % Eos % (Auto) 0.7 (0-8) % Baso % (Auto) 0.3 (0-1) % Immature Gran # (Auto) 0.02 10*3/UL Neut # (Auto) 4.96 10*3/UL Lymph # (Auto) 0.87 10*3/uL [place] # (Auto) 0.82 H (0.3-0.8) 10*3/UL Eos # (Auto) 0.05 10*3/UL Baso # (Auto) 0.02 10*3/UL WBC Morphology Comment Normal morphology (NORM) Plt Morphology Comment Normal morphology (NORM) RBC Morph Comment Normal morphology (NORM) Sodium 139 (135-145) meq/L Potassium 4.7 (3.8-5.2) meq/L Chloride 107 (98-112) meq/L Carbon Dioxide 23 (23-33) meq/L Anion Gap 9 (5-20) BUN 18 (7-22) mg/dL Creatinine 0.9 (0.70-1.50) mg/dL Estimated GFR (>60 ml/min/1.73m(2)) BUN/Creatinine Ratio 20.00 (6-20) Glucose 92 (78-110) mg/dL Calculated Osmolality 289.0 (267-292) mOsm/kg Calcium 8.5 L (8.7-10.7) mg/dL Total Bilirubin 0.2 L (0.3-1.2) mg/dL AST 27 (21-57) IU/L ALT 36 (21-72) IU/L Alkaline Phosphatase 85 (38-126) IU/L Total Protein 6.4 (6.1-8.0) g/dL Albumin 3.5 (3.5-4.8) g/dL Globulin 2.9 (2.50-4.10) g/dL Albumin/Globulin Ratio 1.20 L (1.3-2.0) mg/g Objective : Exam - General General Appearance: Cooperative - Head Head Exam: Normal Inspection - Neck Neck Exam: Normal Inspection - Respiratory Respiratory Exam: Clear to Auscultation - Bilaterally, Breathing Non Labored - Cardiovascular Cardiovascular Exam: RRR, No Murmur, No Clicks - GI/Abdominal GI/Abdominal Exam: Non Tender, Non Distended, Soft - Extremities Extremities Exam: No Clubbing Present, No Edema Present, No Cyanosis Present Assessment and Plan - Patient Problems (1) Pneumonia Current Visit: Yes Status: Acute Comment: Continue Levaquin 750 no fever patient is improving Qualifiers: Pneumonia type: due to Pneumococcus Laterality: bilateral (2) Hypoxia Current Visit: Yes Status: Acute Comment: Improved (3) Fever Current Visit: Yes Status: Acute Comment: Resolved Qualifiers: Fever type: due to other condition Qualified Description: Fever in other diseases Qualifier Code(s): (R50.81) Fever presenting with conditions classified elsewhere (4) Sinusitis Current Visit: Yes Status: Acute Comment: Continue Levaquin patient has less postnasal drip Qualifiers: Sinusitis location: maxillary (5) Dehydration Current Visit: Yes Status: Acute Comment: BUN/creatinine the indices are improved (6) Uncontrolled hypertension Current Visit: Yes Status: Acute Comment: We will start at add Norvasc to his regimen he is already on metoprolol (7) Left shoulder pain Current Visit: Yes Status: Acute Comment: Apparently the patient had the surgery scheduled with neurosurgery in [facility] Tuesday but because of his fever they have canceled it we will contact Dr. Dickerson tomorrow noted no the situation
[2016-05-30] MEDS: Levofloxacin 750mg (Premix) 750 MG in Dextrose 1 BAG IV SCH (17:29)
[2016-05-30] MEDS: cefTRIAXone Inj 2 GM in Sodium Chloride 0.9% 100 ML IV SCH (21:07)
[2016-05-30] MEDS: Simvastatin Tab 40 MG TAB PO SCH (21:07)
[2016-05-31 03:54] VITALS: RESP 20
[2016-05-31] MEDS: HEPARIN 5000 UNIT/1 ML SUBCUT SCH (05:00)
[2016-05-31] MEDS: HYDROCHLOROTHIAZIDE 12.5 MG CAPSULE PO SCH (06:47)
--- NOTE | 2016-05-31 08:24 | DI ---
XR CXR 2VW PA/LAT,05/28/2016 4:39 PM: Clinical History: Fever Previous Exam: May 20, 2016 Findings: A single frontal radiograph of the chest is obtained, and demonstrate clear lungs. The cardiomediasti num and bony thorax are unremarkable. Stable postsurgical changes are seen. Impression: No acute disease.
[2016-05-31] MEDS: METOPROLOL SUCCINATE 100 MG SR 24H TABLET PO SCH (08:54)
[2016-05-31] MEDS: ASPIRIN EC 81 MG TABLET PO SCH (08:55)
[2016-05-31 09:34] LABS: BASOPHILS # (AUTO) 0.01 10*3/UL; BASOPHILS % (AUTO) 0.2 % (0-1); EOSINOPHILS % (AUTO) 1.4 % (0-8); HEMATOCRIT 41.4 % (42.0-52.0); HEMOGLOBIN 13.1 g/dL (14.0-18.0); IMM GRAN % (AUTO) 0 % (0-5); IMM GRAN# (AUTO) 0 10*3/UL; LYMPHOCYTES # (AUTO) 0.65 10*3/uL; LYMPHOCYTES % (AUTO) 12.8 % (10-50); MEAN CORPUSCULAR HEMOGLOBIN 30.3 PG (27-31); MEAN CORPUSCULAR HGB CONC 31.6 g/dL (33-37); MEAN PLATELET VOLUME 8.7 FL (7.4-12.2); MONOCYTES # (AUTO) 0.35 10*3/UL (0.3-0.8); MONOCYTES % (AUTO) 6.9 % (5-15); NEUTROPHILS # (AUTO) 3.99 10*3/UL; NEUTROPHILS % (AUTO) 78.7 % (50-80); RDW COEFFICIENT OF VARIATION 12.5 % (11.5-14.5); RED BLOOD COUNT 4.32 10^6/uL (4.70-6.10); WHITE BLOOD COUNT 5.07 10^3/uL (4.8-10.8)
[2016-05-31 09:48] LABS: PLATELET MORPHOLOGY COMMENT NORMAL MORPHOLOGY (NORM)
[2016-05-31 10:13] LABS: BILIRUBIN,TOTAL 0.3 mg/dL (0.3-1.2); CALCIUM 9.3 mg/dL (8.7-10.7); CREATININE 0.8 mg/dL (0.70-1.50); POTASSIUM 4.4 meq/L (3.8-5.2); TOTAL PROTEIN 6.3 g/dL (6.1-8.0)
--- NOTE | 2016-05-31 12:17 | DCSUMMARY ---
Hospitalization Summary Hospital Course: Final Discharge Diagnosis: Current Visit Problems Problem Status Priority Diagnosed Code Dehydration Acute E86.0 Fever Acute R50.9 Hypoxia Acute R09.02 Left shoulder pain Acute M25.512 Pneumonia Acute J18.9 Sinusitis Acute J32.9 Uncontrolled hypertension Acute I10 Diagnostic Data, Laboratory Data, and Procedures of Signifigance: Laboratory Results 05/28/16 05/28/16 05/29/16 Range/Units 16:39 17:12 05:06 WBC 5.16 5.15 (4.8-10.8) 10^3/uL RBC 4.39 L 4.13 L (4.70-6.10) 10^6/uL Hgb 13.4 L 12.8 L (14.0-18.0) g/dL Hct 42.3 40.0 L (42.0-52.0) % MCV 96.4 H 96.9 H (80-90) FL MCH 30.5 31.0 (27-31) PG MCHC 31.7 L 32.0 L (33-37) g/dL RDW Std Deviation 45.5 45.5 (39-50) fL RDW Coeff of Benitez 13.1 13.1 (11.5-14.5) % Plt Count 213 173 (140-350) 10*3/uL MPV 9.1 9.0 (7.4-12.2) FL Immature Gran % (Auto) 0.4 0.4 (0-5) % Neut % (Auto) 71.4 70.2 (50-80) % Lymph % (Auto) 9.5 L 12.6 (10-50) % [place] % (Auto) 17.1 H 14.4 (5-15) % Eos % (Auto) 0.8 1.4 (0-8) % Baso % (Auto) 0.8 1.0 (0-1) % Immature Gran # (Auto) 0.02 0.02 10*3/UL Neut # (Auto) 3.69 3.62 10*3/UL Lymph # (Auto) 0.49 0.65 10*3/uL [place] # (Auto) 0.88 H 0.74 (0.3-0.8) 10*3/UL Eos # (Auto) 0.04 0.07 10*3/UL Baso # (Auto) 0.04 0.05 10*3/UL WBC Morphology Comment See comments Normal morphology (NORM) Plt Morphology Comment Normal morphology Normal morphology (NORM) RBC Morph Comment Normal morphology Normal morphology (NORM) D-Dimer 0.50 (0.00-0.59) mg/L Sodium 139 140 (135-145) meq/L Potassium 4.2 4.2 (3.8-5.2) meq/L Chloride 100 106 (98-112) meq/L Carbon Dioxide 26 24 (23-33) meq/L Anion Gap 13 10 (5-20) BUN 26 H 26 H (7-22) mg/dL Creatinine 1.3 1.2 (0.70-1.50) mg/dL Estimated GFR (>60 ml/min/1.73m(2)) BUN/Creatinine Ratio 20.00 21.66 H (6-20) Glucose 103 87 (78-110) mg/dL Calculated Osmolality 292.0 293.0 H (267-292) mOsm/kg Lactic Acid 0.9 (0.70-2.10) MMOL/L Calcium 8.5 L 8.4 L (8.7-10.7) mg/dL Phosphorus 3.4 (2.4-4.3) mg/dl Total Bilirubin 0.3 (0.3-1.2) mg/dL AST 29 (21-57) IU/L ALT 35 (21-72) IU/L Alkaline Phosphatase 99 (38-126) IU/L Total Creatine Kinase 78 (55-170) IU/L Troponin I 0.012 (< 0.040) ng/mL C-Reactive Protein 5.6 H (0.0-0.9) mg/dL Total Protein 7.4 (6.1-8.0) g/dL Albumin 4.3 3.6 (3.5-4.8) g/dL Globulin 3.1 (2.50-4.10) g/dL Albumin/Globulin Ratio 1.30 (1.3-2.0) mg/g Ur Collection Type Clean catch urine Urine Color Yellow Urine Clarity Clear (CLEAR) Urine pH 5.0 (5.0-8.5) Ur Specific [place] 1.025 (1.005-1.030) Urine Protein 30 (NEG) mg/dl Urine Glucose (UA) Negative (NEG) mg/dL Urine Ketones Trace (NEG) Urine Occult Blood Negative (NEG) Urine Nitrate Negative (NEG) Urine Bilirubin Negative (NEG) Urine Urobilinogen 0.2 (0.2) EU/dL Ur Leukocyte Esterase Negative (NEG) Urine RBC 1-3 (NONE) /hpf Urine WBC 1-3 (NONE) Ur Squamous Epith Cells Rare (NONE) Ur Renal Epithelial Cell None (NONE) Urine Crystals None Urine Bacteria Rare (NONE) Urine Casts None (NONE) Urine Mucus None (NONE) Urine Trichomonas None (NONE) Urine Yeast None (NONE) Ur Culture Indicated? Culture not set 05/30/16 05/31/16 Range/Units 04:53 09:29 WBC 6.74 5.07 (4.8-10.8) 10^3/uL RBC 4.13 L 4.32 L (4.70-6.10) 10^6/uL Hgb 12.5 L 13.1 L (14.0-18.0) g/dL Hct 40.0 L 41.4 L (42.0-52.0) % MCV 96.9 H 95.8 H (80-90) FL MCH 30.3 30.3 (27-31) PG MCHC 31.3 L 31.6 L (33-37) g/dL RDW Std Deviation 45.2 42.8 (39-50) fL RDW Coeff of Benitez 13.0 12.5 (11.5-14.5) % Plt Count 188 188 (140-350) 10*3/uL MPV 9.4 8.7 (7.4-12.2) FL Immature Gran % (Auto) 0.3 0 (0-5) % Neut % (Auto) 73.6 78.7 (50-80) % Lymph % (Auto) 12.9 12.8 (10-50) % [place] % (Auto) 12.2 6.9 (5-15) % Eos % (Auto) 0.7 1.4 (0-8) % Baso % (Auto) 0.3 0.2 (0-1) % Immature Gran # (Auto) 0.02 0 10*3/UL Neut # (Auto) 4.96 3.99 10*3/UL Lymph # (Auto) 0.87 0.65 10*3/uL [place] # (Auto) 0.82 H 0.35 (0.3-0.8) 10*3/UL Eos # (Auto) 0.05 0.07 10*3/UL Baso # (Auto) 0.02 0.01 10*3/UL WBC Morphology Comment Normal morphology Normal morphology (NORM) Plt Morphology Comment Normal morphology Normal morphology (NORM) RBC Morph Comment Normal morphology Normal morphology (NORM) D-Dimer (0.00-0.59) mg/L Sodium 139 138 (135-145) meq/L Potassium 4.7 4.4 (3.8-5.2) meq/L Chloride 107 105 (98-112) meq/L Carbon Dioxide 23 22 L (23-33) meq/L Anion Gap 9 11 (5-20) BUN 18 12 (7-22) mg/dL Creatinine 0.9 0.8 (0.70-1.50) mg/dL Estimated GFR (>60 ml/min/1.73m(2)) BUN/Creatinine Ratio 20.00 15.00 (6-20) Glucose 92 127 H (78-110) mg/dL Calculated Osmolality 289.0 287.0 (267-292) mOsm/kg Lactic Acid (0.70-2.10) MMOL/L Calcium 8.5 L 9.3 (8.7-10.7) mg/dL Phosphorus (2.4-4.3) mg/dl Total Bilirubin 0.2 L 0.3 (0.3-1.2) mg/dL AST 27 32 (21-57) IU/L ALT 36 32 (21-72) IU/L Alkaline Phosphatase 85 90 (38-126) IU/L Total Creatine Kinase (55-170) IU/L Troponin I (< 0.040) ng/mL C-Reactive Protein (0.0-0.9) mg/dL Total Protein 6.4 6.3 (6.1-8.0) g/dL Albumin 3.5 3.6 (3.5-4.8) g/dL Globulin 2.9 2.7 (2.50-4.10) g/dL Albumin/Globulin Ratio 1.20 L 1.30 (1.3-2.0) mg/g Ur Collection Type Urine Color Urine Clarity (CLEAR) Urine pH (5.0-8.5) Ur Specific [place] (1.005-1.030) Urine Protein (NEG) mg/dl Urine Glucose (UA) (NEG) mg/dL Urine Ketones (NEG) Urine Occult Blood (NEG) Urine Nitrate (NEG) Urine Bilirubin (NEG) Urine Urobilinogen (0.2) EU/dL Ur Leukocyte Esterase (NEG) Urine RBC (NONE) /hpf Urine WBC (NONE) Ur Squamous Epith Cells (NONE) Ur Renal Epithelial Cell (NONE) Urine Crystals Urine Bacteria (NONE) Urine Casts (NONE) Urine Mucus (NONE) Urine Trichomonas (NONE) Urine Yeast (NONE) Ur Culture Indicated? History and Physical pertinent to Admission: Course of Hospitalization: Is a very nice 75-year-old gentleman with past medical history of hypertension hypercholesterolemia comes into the hospital with some shortness of breath and cough was found to have bilateral opacities on CT scan and postnasal drip and some mild maxillary sinus abnormalities on CT scan patient was treated with Levaquin 750 IV improved dramatically over the few days that the patient was admitted and is back to his normal self EU stable he is walking around the with no balance issues and not needing extra oxygen he was scheduled to have surgery on his left shoulder and neck at that in [place] [facility] but this was rescheduled to secondary to his fevers and pneumonia his blood cultures remain negative . He was discharged home in stable and improved condition with follow- up with his primary care physician he will finish 5 more days of by mouth Levaquin. He will be staying in town with his relatives for the next few days [place] spoke to the whole family is well On the date of discharge, the patient was examined: Gen.: No acute distress, alert, nontoxic Heart: Regular rate and rhythm, no murmurs, clicks, gallops, or rubs Lungs: Clear to auscultation bilaterally, breathing is nonlabored Abdomen/GI: Normal tones on auscultation, soft, nontender, nondistended Musculoskeletal/extremities: No clubbing, cyanosis, or edema Vitals reviewed and are listed below Vital Signs (24 hrs) Temp Pulse Pulse Pulse Resp BP Pulse Ox 05/31/16 08:48 97.7 F 75 20 166/69 97 05/31/16 07:00 70 05/31/16 06:40 80 93 05/31/16 05:00 93 05/31/16 03:52 98.1 F 82 20 179/75 95 05/31/16 03:00 68 96 05/30/16 23:44 98.3 F 67 21 152/67 95 05/30/16 23:00 65 98 05/30/16 20:07 98.4 F 81 22 152/65 97 05/30/16 19:00 73 97 05/30/16 16:15 98 F 70 18 162/63 96 05/30/16 15:10 93 05/30/16 15:00 75 Assessment and Plan: 1. As per discharge assessments above 2. Disposition: Home 3. Condition on discharge, stable and improved. 4. Diet: regular diet 5. Activities: resume normal activities 6. Follow-Up: 1. PCP he will make his own appointment 2. 7. Medications at the Time of Discharge: Home Medications Medication Instructions Recorded Confirmed Type Aspirin Aspir 81 1 tab PO DAILY 04/03/10 05/28/16 History Metoprolol Succinate Toprol Xl 1 tab ORAL QD #30 tab 01/15/16 05/28/16 Clinic Simvastatin 1 tab PO QHS #30 tab 01/15/16 05/28/16 Clinic Amlodipine Besylate Norvasc 10 mg PO DAILY #30 tab 05/31/16 Rx Levofloxacin Tab Levaquin Tab 750 mg PO DAILY #5 tablet 05/31/16 Rx 8. Time, care, counseling and coordination of care for this discharge is greater than 30 minutes. Exam - Vitals Vital Signs: Vital Signs Temperature 97.7 F Temperature Source Oral Pulse Rate [Apical] 80 Pulse Rate [Pulse Oximeter] 75 Pulse Rate 70 Respiratory Rate 20 Blood Pressure [Left Arm] 166/69 Pulse Ox 97 Oxygen Flow Rate 1 Oxygen Delivery Method Nasal Cannula Height 5 ft 6 in Weight 88.949 kg Patient Problems - Patient Problem List (1) Pneumonia Current Visit: Yes Status: Acute Qualifiers: Pneumonia type: due to Pneumococcus Laterality: bilateral (2) Hypoxia Current Visit: Yes Status: Acute (3) Fever Current Visit: Yes Status: Acute Qualifiers: Fever type: due to other condition Qualified Description: Fever in other diseases Qualifier Code(s): (R50.81) Fever presenting with conditions classified elsewhere (4) Sinusitis Current Visit: Yes Status: Acute Qualifiers: Sinusitis location: maxillary (5) Dehydration Current Visit: Yes Status: Acute (6) Uncontrolled hypertension Current Visit: Yes Status: Acute (7) Left shoulder pain Current Visit: Yes Status: Acute
[2016-05-31 14:42] VITALS: TEMP 97.1
--- NOTE | 2016-06-01 11:52 | PTI REPORT ---
Thank you for the referral of Dany Smith. He was seen on 05/31/16 for an inpatient evaluation secondary to generalized weakness. SUBJECTIVE: The patient is a 75-year-old male who states that he was supposed to have a surgery in [place] due to a cervical disc herniation. When he got down to [place] he was running a fever and was sent to the hospital. He states that he was diagnosed with pneumonia. The patient states that he has been doing much better since his admittance to the hospital. He no longer has a fever and is currently only on one liter of oxygen. The patient states that he is hoping that he will be discharged later this afternoon to return back home. The patient states that [place] of [facility]; he lives by himself and prior to admittance to the hospital he was able to independently care for himself without any issues. He states that his home is a one level house with a basement. He also has five to six steps into his house from the porch. The patient states that before coming to the hospital he was not using any assistive device and has no history of falls. The patient states that he is taking medication in order to control his blood pressure. PAST MEDICAL HISTORY: Past medical history can be found in the patient's medical record. OBJECTIVE FINDINGS: General observations: The patient is alert and oriented to setting upon PT arrival. The patient was sitting up in bed. The patient was on one liter of oxygen. Oxygen saturation was at 95% as the patient was seated edge of bed. Strength: The patient demonstrates 4/5 bilateral lower extremity strength. Transfers: The patient was able to independently and safely perform a seated to stand transfer. Balance: The patient demonstrated good standing balance and was able to stand x2 minutes without any difficulty. The patient was able to perform the Romero balance scale. He scored a 51/56 on the Romero balance scale. Ambulation: The patient was able to ambulate x150 feet with stand by assist x1 for safety without use of assistive device on one liter of oxygen. He maintained his oxygen saturation at 96% with activity. ASSESSMENT: The patient has good rehab potential. Problem List: Generalized weakness Decreased endurance/activity tolerance Physical Therapy Goals: To be met by discharge from inpatient: Patient will be able to ambulate at least 200 feet safely and independently. Patient will be able to ascend and descend a flight of stairs safely and independently while maintaining oxygen saturation above 90%. TREATMENT PLAN: Patient will be seen B.I.D during the week and one time per day over the weekend as an inpatient for strengthening and balance activities. INITIAL TREATMENT: Treatment today consisted of the initial evaluation followed by one unit of functional activity. KRISTIN
== END 2016-05-31 14:34 | disposition home or self-care (01) | DRG 195 ==
LOC: ER 16:23 → MED/SURG 20:33
PROVIDERS: ADMIT Internal Medicine; ATTEND Internal Medicine
DX: J13 Pneumonia due to Streptococcus pneumoniae (principal); R09.02 Hypoxemia; R50.9 Fever, unspecified; J32.0 Chronic maxillary sinusitis; E86.0 Dehydration; I10 Essential (primary) hypertension; M25.512 Pain in left shoulder
CPT/HCPCS: 36415; 70450; 71020; 71260; 74177; 80053; 80069; 81001; 81003; 82550; 83605; 84484; 85025; 85379; 86140; 87040; 87804; 93005; 93010; 94761; 96361; 96374; 99285; J0696; J1644; J1885; J7030; J7050

== ENCOUNTER → 2016-06-02 | Outpatient (CLI) | payer OTHER | LOC: MMPC 11:11 | PROVIDERS: ATTEND Internal Medicine | DX: R42 Dizziness and giddiness (principal); R19.7 Diarrhea, unspecified; R03.1 Nonspecific low blood-pressure reading | CPT/HCPCS: 99214 ==

== ENCOUNTER → 2016-06-04 | Outpatient (CLI) | payer OTHER | LOC: MMPC 11:11 | PROVIDERS: ATTEND Nurse Practitioner | DX: I10 Essential (primary) hypertension (principal) | CPT/HCPCS: 99213 ==

== ENCOUNTER → 2016-07-21 | Outpatient (CLI) | payer OTHER ==
--- NOTE | 2016-07-21 20:37 | DI ---
CERVICAL SPINE SERIES, 07/21/2016 4:55 PM: Clinical History: Neck pain. Status post fusion. Followup exam. Previous Exam: 05/04/2016. Upright AP and lateral and upright lateral flexion and extension views and an upright lateral swimmer 's view are submitted. Cannot lower is shoulders to visualize the C7-T1 disc space. Since the previou s exam, the anterior buttress plate between C5 and C7 has been removed. The patient is status post ne w anterior fusion at C4-5. C2-3 and C3-4 show mild disc space narrowing. C5-6 and C6-7 fusions are so lid. Flexion and extension maneuvers show no instability. Posterior alignment and lateral masses are normal. C1 articulates normally with C2 and the occiput. Prevertebral soft tissue planes show minimal swelling anterior to the surgical plate at C4-5. Both lung apices are normal. Dense calcifications a re present in the left carotid bulb. Readin. Status post recent anterior fusion at C4-5. 2. Status post removal of the surgical hardware between C5 and C7. C5-6 and C6-7 fusions are solid. 3. No instability with flexion and extension maneuvers.
== END ==
LOC: RAD 16:44
PROVIDERS: ATTEND Neurological Surgery
DX: Z48.811 Encounter for surgical aftercare following surgery on the nervous system (principal); Z98.1 Arthrodesis status
CPT/HCPCS: 72050

== ENCOUNTER → 2016-09-30 | Outpatient (CLI) | payer OTHER ==
--- NOTE | 2016-09-30 14:11 | DI ---
XR C-SPINE 2-3 VW,09/30/2016 1:38 PM: Clinical History: Neck pain Previous Exam: July 21, 2016. Findings: Multiple views of the cervical spine are obtained, and demonstrate stable postsurgical changes consis tent with anterior screw and plate fixation of the C4/5 level. There is also interbody fusion at this level. There has been no definite new bone formation. Mild degenerative changes of the visible thoracic spine are noted. Impression: No significant change from the prior exam.
== END ==
LOC: RAD 13:13
PROVIDERS: ATTEND Neurological Surgery
DX: Z48.811 Encounter for surgical aftercare following surgery on the nervous system (principal); M54.2 Cervicalgia; Z98.1 Arthrodesis status
CPT/HCPCS: 72040

== ENCOUNTER → 2016-10-04 | Outpatient (CLI) | payer OTHER | LOC: MMPC 11:11 | PROVIDERS: ATTEND Internal Medicine | DX: I10 Essential (primary) hypertension (principal); E78.5 Hyperlipidemia, unspecified; I25.10 Atherosclerotic heart disease of native coronary artery without angina pectoris | CPT/HCPCS: 99213; G0463 ==

== ENCOUNTER 2016-10-13 10:31 | Emergency (ER) | payer OTHER ==
[2016-10-13] MEDS ORDERED: Sodium Chloride 0.9% 1,000 ML PRIMARY IV ONE (10:49)
[2016-10-13] MEDS ORDERED: NORMAL SALINE 10 ML SYRINGE FLUSH IVP PRN (10:49)
[2016-10-13 10:55] VITALS: RESP 16; TEMP 97.4
--- NOTE | 2016-10-13 11:02 | PDOC ---
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 He fell to the ground was completely passed out did not have any sort of tonic-clonic activity no loss of bowel or bladder continence he awakened fairly quickly without any sort of neurologic deficit was able to get up and actually felt okay after this episode. He presented to the emergency department for evaluation. He's never had a syncopal episode in the past. He states he had no chest pain no shortness of breath no unilateral neurologic symptoms no global neurologic symptoms other than the syncopal event itself did not feel any palpitations has not had fever or chills or infective sort of symptoms at all lately. He specifically states that he does not have any chest symptoms whatsoever. - Patient Home Medications Home Medications: Home Medications Aspirin [Aspir 81] 1 tab PO DAILY 04/03/10 Metoprolol Succinate [Toprol Xl] 1 tab ORAL QD #90 tab 10/04/16 Simvastatin 1 tab PO QHS #90 tab 10/04/16 - Patient Allergies Allergies/Adverse Reactions: Allergies Allergy/AdvReac Type Severity Reaction Status Date / Time pneumococcal vaccine Allergy HIVES Verified 10/13/16 10:42 Past Medical History - heen HEENT History: Cataracts, Dentures/Partials, Other (please comment) Additional HEENT History: WEARS GLASSES Cardiovascular History: Hypertension, CAD, Hyperlipidemia Additional Cardiovasular History: INFERIOR ISCHEMIA ON A STRESS TEST Respiratory History: Denies History Gastrointestinal History: Diverticulitis, Other (please comment) Additional Gastrointestinal History: CHRONIC LLQ PAIN/COLONIC POLYPS Genitourinary History: Denies History Endocrine History: Denies History Musculoskeletal History: Carpal Tunnel, Other (please comment) Prosthesis or Implant: Yes (NECK ) Additional Musculoskeletal History: CARPAL TUNNEL SYNDROME/DEGENERATION OF CERVICAL INTERVERTEBRAL DISC, LEFT ROTATOR CUFF TEAR Neurological History: Denies History Blood Disorders: Denies History Psychiatric History: Denies History History of Sexually Transmitted Diseases: No Cancer History: Denies History In Past Year Been Physically Harmed or Verbally Threatened: No History of MDRO: No History of Other Communicable Diseases: No Tobacco Use: Former Smoker Alcohol Use: Occasionally Substance Use Type: None Previous Surgical History: Yes Type / Date of Surgery: RIGHT CARPAL TUNNEL RELEASE 08-26/CERVICAL FUSION/ COLONOSCOPY 2005 & 2009/GANGLION CYST. cervical fusion 05/2016 Anesthesia Reactions: No Malignant Hyperthermia: No Significant Family History: Renal disease Past Medical History Reviewed: Reviewed - No Changes ROS - Limitations ROS Limitations: No Limitations Constitution: REPORTS: Denies Symptoms Cardiovascular: REPORTS: Denies Cardiac Symptoms Respiratory: REPORTS: Denies Resp Symptoms Neurological: REPORTS: Denies Neuro Symptoms Gastrointestinal: REPORTS: Denies GI Symptoms Genitourinary: REPORTS: Denies Symptoms Syncope / Near-Syncope Exam - General Appearance General Appearance: POSITIVE: Alert, Cooperative, No Acute Distress - HEENT HEENT: POSITIVE: Head Inspection Nml, Eyes Inspection Nml - Neck / Back Neck/Back: POSITIVE: Supple, Non-Tender - Respiratory Respiratory: POSITIVE: No Respiratoy Distress, Breath Sounds Normal - Cardiovascular Cardiovascular: POSITIVE: Regular Rate and Rhythm, Heart Sounds Normal - Abdomen Abdomen: Soft: (All Quadrants), Normal Bowel Sounds: (All Quadrants), Denies Tenderness: (All Quadrants) - Extremities Additional Extremities Details: Extremities are benign - Neuro / Psych Higher Functions: POSITIVE: Oriented to Person, Oriented to Place, Oriented to Time, Normal Speech, Normal Cognition, Appropriate Mood, Appropriate Affect Cranial Nerves: POSITIVE: Normal As Tested, No Evidence of Acute CVA Cerebellar: POSITIVE: Normal As Tested Sensorimotor: POSITIVE: No Motor Deficits Syncope/Near-Syncope Progress - Results Reviewed by me Lab Results Reviewed: Yes Lab Results:: Laboratory Results 10/13/16 10/13/16 Range/Units 10:57 11:14 WBC 5.07 (4.8-10.8) 10^3/uL RBC 4.27 L (4.70-6.10) 10^6/uL Hgb 13.0 L (14.0-18.0) g/dL Hct 40.9 L (42.0-52.0) % MCV 95.8 H (80-90) FL MCH 30.4 (27-31) PG MCHC 31.8 L (33-37) g/dL RDW Std Deviation 51.4 H (39-50) fL RDW Coeff of Benitez 15.0 H (11.5-14.5) % Plt Count 220 (140-350) 10*3/uL MPV 9.0 (7.4-12.2) FL Immature Gran % (Auto) 0.4 (0-5) % Neut % (Auto) 64.3 (50-80) % Lymph % (Auto) 19.1 (10-50) % Day % (Auto) 12.2 (5-15) % Eos % (Auto) 3.4 (0-8) % Baso % (Auto) 0.6 (0-1) % Immature Gran # (Auto) 0.02 10*3/UL Neut # (Auto) 3.26 10*3/UL Lymph # (Auto) 0.97 10*3/uL Day # (Auto) 0.62 (0.3-0.8) 10*3/UL Eos # (Auto) 0.17 10*3/UL Baso # (Auto) 0.03 10*3/UL WBC Morphology Comment Normal morphology (NORM) Plt Morphology Comment Normal morphology (NORM) RBC Morph Comment Normal morphology (NORM) Sodium 143 (135-145) meq/L Potassium 4.0 (3.8-5.2) meq/L Chloride 110 (98-112) meq/L Carbon Dioxide 19 L (23-33) meq/L Anion Gap 14 (5-20) BUN 37 H (7-22) mg/dL Creatinine 1.5 (0.70-1.50) mg/dL Estimated GFR (>60 ml/min/1.73m(2)) BUN/Creatinine Ratio 24.66 H (6-20) Glucose 90 (78-110) mg/dL Calculated Osmolality 304.0 H (267-292) mOsm/kg Calcium 8.7 (8.7-10.7) mg/dL Total Bilirubin 0.3 (0.3-1.2) mg/dL AST 35 (21-57) IU/L ALT 37 (21-72) IU/L Alkaline Phosphatase 89 (38-126) IU/L Troponin I 0.015 (< 0.040) ng/mL Total Protein 7.1 (6.1-8.0) g/dL Albumin 4.1 (3.5-4.8) g/dL Globulin 2.9 (2.50-4.10) g/dL Albumin/Globulin Ratio 1.40 (1.3-2.0) mg/g TSH 2.24 (0.2700-4.2000) uIU/mL Ur Collection Type Clean catch urine Urine Color Yellow Urine Clarity Clear (CLEAR) Urine pH 5.5 (5.0-8.5) Ur Specific [place] 1.020 (1.005-1.030) Urine Protein Trace (NEG) mg/dl Urine Glucose (UA) Negative (NEG) mg/dL Urine Ketones Trace (NEG) Urine Occult Blood Negative (NEG) Urine Nitrate Negative (NEG) Urine Bilirubin Negative (NEG) Urine Urobilinogen 0.2 (0.2) EU/dL Ur Leukocyte Esterase Negative (NEG) Ur Culture Indicated? Culture not set - Patient's Progress MDM / ED Course: This patient is currently symptom free. He has completely recovered from his syncopal episode. He is left with no neurologic changes at all. He had an EKG that was really fairly benign and looks similar to previous EKG he also had negative troponin as well as mostly benign-appearing labs with the exception of a minimally low hemoglobin and an elevated BUNs and consistent with dehydration. Ultimately I have told him that I want to send him home with a Holter monitor that think he needs close outpatient follow-up with his primary care doctor with either some stool Hemoccults are consideration of colonoscopy he hasn't had it. He should have his hemoglobin watched. And he is to take it easy and not try to do any substantial work or lifting or anything that could cause him danger if he had another syncopal event. He also knows to return right away if he has any new symptoms or anything of concern. Patient Care Time - Estimated PCT Patient Care Time (In Minutes): 40 Vital Signs - Recent Vital Signs Vital Signs: Vital Signs (Last 8 hours) Temp Pulse Resp BP Pulse Ox 10/13/16 10:31 97.4 F 71 16 146/66 94 - VS Reviewed Vital Signs Reviewed: Yes Discharge Clinical Impression: Syncope, Dehydration Discharge Disposition: Discharged to Home Condition: Stable Patient Instructions Given at Discharge: Syncope (ED), Dehydration (ED) Additional Instructions: Monitor symptoms closely return if you have any further episodes of syncope any chest pain any new or different neurologic symptoms or anything of concern Follow-up with her primary care provider in 24-48 hours for reevaluation and repeat exam You are being discharged with a Holter monitor to watch your heart closely for 48 hours. This test will be read and forwarded to your primary care doctor Your labs and exam would suggest that you are somewhat dehydrated today. You' re given a liter of IV fluid please continue to drink plenty of fluids today and tomorrow. Follow Up With: VIJAY NGO [Primary Care Provider] -
[2016-10-13 11:03] LABS: BASOPHILS # (AUTO) 0.03 10*3/UL; BASOPHILS % (AUTO) 0.6 % (0-1); EOSINOPHILS # (AUTO) 0.17 10*3/UL; EOSINOPHILS % (AUTO) 3.4 % (0-8); HEMATOCRIT 40.9 % (42.0-52.0); LYMPHOCYTES # (AUTO) 0.97 10*3/uL; MEAN CORPUSCULAR HEMOGLOBIN 30.4 PG (27-31); MEAN CORPUSCULAR HGB CONC 31.8 g/dL (33-37); MEAN CORPUSCULAR VOLUME 95.8 FL (80-90); MONOCYTES # (AUTO) 0.62 10*3/UL (0.3-0.8); MONOCYTES % (AUTO) 12.2 % (5-15); NEUTROPHILS # (AUTO) 3.26 10*3/UL; NEUTROPHILS % (AUTO) 64.3 % (50-80); RED BLOOD COUNT 4.27 10^6/uL (4.70-6.10)
[2016-10-13 11:04] LABS: PLATELET MORPHOLOGY COMMENT NORMAL MORPHOLOGY (NORM); RBC MORPHOLOGY COMMENT NORMAL MORPHOLOGY (NORM); WBC MORPHOLOGY COMMENT NORMAL MORPHOLOGY (NORM)
[2016-10-13 11:10] LABS: BUN/CREATININE RATIO 24.66 (6-20); CALCIUM 8.7 mg/dL (8.7-10.7); SERUM ALBUMIN 4.1 g/dL (3.5-4.8)
[2016-10-13 11:18] LABS: BILIRUBIN,URINE NEGATIVE (NEG); CLARITY,URINE CLEAR (CLEAR); COLOR,URINE YELLOW; GLUCOSE, URINE (UA) NEGATIVE (NEG); NITRATE,URINE NEGATIVE (NEG); OCCULT BLOOD,URINE NEGATIVE (NEG); PH,URINE 5.5 (5.0-8.5); PROTEIN,URINE TRACE mg/dl (NEG); UROBILINOGEN,URINE 0.2 EU/dL (0.2)
[2016-10-13 11:19] LABS: URINE SAMPLE TYPE CLEAN CATCH URINE
--- NOTE | 2016-10-13 11:48 | EKG ---
[address] [place] [address] Measurements Intervals [place] Rate: 67 P: 72 WA: 157 QRS: 96 QRSD: 90 T: -59 QT: 377 QTc: 392 Interpretive Statements SINUS RHYTHM BORDERLINE RIGHT AXIS DEVIATION [QRS AXIS > 90] NONSPECIFIC T-WAVE ABNORMALITY Compared to ECG 05/28/2016 17:07:01 No significant changes Electronically Signed On 10-13-16 17:32:51 MDT by Dion Montiel [id number]
[2016-10-13] MEDS ORDERED: Sodium Chloride 0.9% 1,000 ML ONE (18:10)
== END 2016-10-13 12:36 | disposition home or self-care (01) ==
LOC: ER 10:31
DX: R55 Syncope and collapse (principal); E86.0 Dehydration; E78.5 Hyperlipidemia, unspecified; I10 Essential (primary) hypertension; I25.10 Atherosclerotic heart disease of native coronary artery without angina pectoris
CPT/HCPCS: 80053; 81003; 82948; 84443; 84484; 85025; 93005; 93010; 96360; 96361; 99283; J7030

== ENCOUNTER → 2016-10-18 | Outpatient (CLI) | payer OTHER ==
--- NOTE | 2016-10-20 15:13 | HOLTER ---
[facility] [place] Interpretive Statements Forty eight hour holter done for syncopy. Patient had several episodes of dizzyness while in sinus rhythm, usually with walking but no syncopy. The average sinus rate was 61 with minimum rate of 48 and maximum rate of 96. There were 4 isolated VPCs with 77 PACs of which there were 54 singlets, 3 pairs and 4 runs of 3-6 beats with average rate of 109. No significant pauses were recorded and no symptoms were noted with tachycardia. Nondiagnostic ST depression was seen with walking. IMP: Nondiagnostic holter study with occassional PACs and rare VPCs with brief asymptomatic SVT of 3-6 beats and no significant pauses. Symptoms of dizzyness noted while walking with patient in normal rhythm with rates in mid 70s. Nondiagnostic ST depression seen with exercise. Electronically Signed On 10-21-16 13:47:43 MDT by Dion Montiel [id number]
== END ==
LOC: RT 11:07
PROVIDERS: ATTEND Family Medicine
DX: R55 Syncope and collapse (principal); R42 Dizziness and giddiness
CPT/HCPCS: 93225; 93226; 93227

== ENCOUNTER → 2016-11-02 | Outpatient (CLI) | payer OTHER | LOC: MMPC 11:11 | PROVIDERS: ATTEND Internal Medicine | DX: R55 Syncope and collapse (principal); M54.2 Cervicalgia; I10 Essential (primary) hypertension | CPT/HCPCS: 99214; G0463 ==

== ENCOUNTER → 2016-11-04 | Outpatient (CLI) | payer OTHER ==
--- NOTE | 2016-11-04 19:45 | DI ---
DUPLEX COLOR DOPPLER CAROTID ULTRASOUND, 11/04/2016 12:33 PM: Clinical History: Syncope. Previous Exam: None at this facility. Technique: 2D real time imaging is supplemented with duplex color doppler ultrasound imaging. RIGHT CAROTID ARTERY: 2D real time imaging of the right carotid system shows a normal appearance of the right common caroti d artery. Small calcified plaques are present in the carotid bulb and these extend into the proximal and midportion of the internal carotid artery. Peak systolic velocities through the right common ortiz tid, the external carotid, and the internal carotid are 149 cm/s, 184 cm/s, and 130 cm/s, respectivel y. All values correspond to diameter stenoses of 50-74%. LEFT CAROTID ARTERY: 2D real time imaging of the left carotid system shows minimal noncalcified plaques in the distal left common carotid artery with small calcified plaques in the left carotid bulb. There are noncalcified plaques in the left internal carotid artery. Peak systolic velocities through the left common carotid , the external carotid, and the internal carotid are 116 cm/s, 193 cm/s, and 87 cm/s, respectively. T he values for the left common carotid artery and the internal carotid artery correspond to diameter s tenoses of 0-49%. The value for the left external carotid artery corresponds to a diameter stenosis o f 50-74%. VERTEBRAL ARTERIES: There is antegrade flow through both vertebral arteries Cardiac rhythm is regular, but there are long episodes during the scans were the patient does have sinus bradycardia. Peak systolic velocities thr ough the visualized portions of the right and left vertebral arteries are 45 cm/s and 64 cm/s, respec tively. Both values correspond to diameter stenoses of 0-49%. Readin. There is no hemodynamically significant stenosis of either carotid system. 2. There is antegrade flow through both vertebral arteries. Cardiac rhythm is regular but there are long segments during this study were the patient does experience sinus bradycardia.
--- NOTE | 2016-11-05 08:33 | DI ---
CT CERVICAL SPINE SCAN, 11/04/2016 12:33 PM : Clinical History: Cervical pain. Previous Exam: None at this facility. Scans are performed from the T1-2 disc space to the base of the skull without IV contrast. Sagittal a nd coronal reformatted images are generated. The patient is status post anterior fusions from C4-5 through C6-7. The C5-6 and C6-7 fusions are ольга id. The C4-5 fusion apparently is a new or effusion performed with cortical bone grafts and transfixe d with an anterior plate between C4 and C5. This fusion does not appear solid. No fractures are ident ified. Posterior alignment and lateral masses are normal. C1 articulates normally with C2 and the occ iput. Prevertebral soft tissue planes are normal. High-resolution thin slices are performed through the cervical disc spaces. C2-3 has a central bulgin g but not herniated disc without canal or neural foraminal stenosis. C3-4 has a bulging but not herni ated disc with canal stenosis but no significant neural foraminal stenosis. The lower levels are obsc ured by artifacts. The uncovertebral joints bilaterally at C2-3 and C3-4 show arthritic spurring. READIN. Status post anterior fusions from C4-5 through C6-7. The C4-5 fusion does not appear to be solid. It was apparently performed at a different time from the C5-6 and C6-7 fusions that are solid. 2. C3-4 has a bulging but not herniated disc with canal stenosis in the AP diameter without neural f oraminal stenosis. 3. C2-3 has a bulging but not herniated disc without canal or neural foraminal stenosis. 4. Assessment of the lower levels is difficult because the scan artifacts.
--- NOTE | 2016-11-05 10:22 | DI ---
MRI BRAIN SCAN WITHOUT IV CONTRAST, 11/04/2016 12:33 PM: Clinical History: Syncope. Previous Exam: None at this facility. Sequences: Sagittal T1; Axial SANA T2 and FLAIR. Axial diffusion weighted images with ADC mapping were also performed. The 4th, 3rd, and lateral ventricles are of normal size, shape, position, and contour for this patien t's age. On the T2-weighted and FLAIR sequences, there is a focus of hyperintensity in the right temp oral lobe toward the anterior pole. This is located in the white matter and does not show restricted diffusion. This may represent a small focus of demyelination of unknown allergy or possibly focal isc hemia, and in a right handed dominant individual, this may not produce any detectable clinical sympto ms. There is mild cerebral atrophy. There are no extracerebral mantels or shift of the midline struct ures. The paranasal sinuses are normal. Readin. There is a small focus of white matter hyperintensity in the right temporal lobe anteriorly. This may represent some focal demyelinating change versus ischemia. This may be clinically silent in a ri ght-handed dominant individual. 2. The remainder of the exam is normal. There is no evidence of a cerebellopontine angle mass or obv ious abnormality of the seventh and eighth nerves in the internal auditory canals. There is age appro priate mild cerebral atrophy.
== END ==
LOC: CT 13:25
PROVIDERS: ATTEND Internal Medicine
DX: R55 Syncope and collapse (principal); M54.2 Cervicalgia; R00.1 Bradycardia, unspecified; I10 Essential (primary) hypertension; Z98.1 Arthrodesis status
CPT/HCPCS: 70551; 72125; 93880

== ENCOUNTER → 2016-11-16 | Outpatient (CLI) | payer OTHER | LOC: MMPC 11:11 | PROVIDERS: ATTEND Internal Medicine | DX: I10 Essential (primary) hypertension (principal); I25.10 Atherosclerotic heart disease of native coronary artery without angina pectoris; Z87.898 Personal history of other specified conditions | CPT/HCPCS: 99214; G0463 ==